=== PATIENT | male | born 1970 | race Caucasian/White ===

== ENCOUNTER 2017-05-14 14:51 | Emergency (ER) | payer OTHER ==
[2017-05-14 14:56] VITALS: BP 143/90; PULSE 84; TEMP 98.4; BMI 28.1
--- NOTE | 2017-05-14 15:43 | PDOC ---
History of Present Illness <Tim Schroeder - Last Filed: 05/14/17 15:43> - General History Source: Patient Exam Limitations: No Limitations - History of Present Illness Initial Comments: 05/14/17 15:47 The patient is a 47 year old male, with a significant past medical history of well controlled asthma and hypothyroidism, who presents to the emergency department with, a laceration on his 5th digit. The patient reports he was disassembling his electrical rotating metal saw when he accidentally pressed the on switch and it snagged his glove and clipped his finger. He pulled away his hand wrapped it in tissue and electrical tape then, reported to [facility] [place]. He reports his tetanus is up to date. He denies any recent fevers, chills, headache or dizziness. He denies any recent nausea, vomit, diarrhea or constipation. He denies any recent chest pain or shortness of breath. He denies any recent dysuria, frequency, urgency or hematuria. Allergies: NKA Past surgical history: Lower back surgery. Social History: Nonsmoker. Denies EtOH use and recreational drug use. Familial History: Paternal [place] <Rubén Carpenter - Last Filed: 05/14/17 15:47> - General Chief Complaint: Laceration Stated Complaint: cut my finger Time Seen by Provider: 05/14/17 15:09 Past History - Past Medical History COPD: No Thyroid Disease: Yes - Suicide/Smoking/Psychosocial Hx Smoking History: Never smoked Hx Alcohol Use: No Drug/Substance Use Hx: No Substance Use Type: None <Tim Schroeder - Last Filed: 05/14/17 15:43> <Rubén Carpenter - Last Filed: 05/14/17 15:47> - Past Medical History Allergies/Adverse Reactions: Allergies Allergy/AdvReac Type Severity Reaction Status Date / Time Penicillins Allergy Verified 05/14/17 14:52 Home Medications: Ambulatory Orders Escitalopram Oxalate [Lexapro -] 10 mg PO DAILY 05/14/17 Levothyroxine Sodium [Synthroid] 200 mcg PO DAILY 05/14/17 Review of Systems - Review of Systems Able to Perform ROS?: Yes Comments:: 05/14/17 15:47 CONSTITUTIONAL: Absent: fever, no chills, no fatigue EYES: Absent: visual changes ENT: Absent: ear pain, no sore throat CARDIOVASCULAR: Absent: chest pain, no palpitations RESPIRATORY: Absent: cough, no SOB GI: Absent: abdominal pain, no nausea, no vomiting, no constipation, no diarrhea GENITOURINARY: Absent: dysuria, no frequency, no hematuria MUSKULOSKELETAL: Absent: back pain, no arthralgia, no myalgia SKIN:+Laceration on the 5th finger. Absent: rash NEURO: Absent: headache All Other Systems: Reviewed and Negative <Rubén Carpenter - Last Filed: 05/14/17 15:47> *Physical Exam - Vital Signs Last Vital Signs Temp Pulse Resp BP Pulse Ox 98.4 F 84 16 143/90 100 05/14/17 14:51 05/14/17 14:51 05/14/17 14:51 05/14/17 14:51 05/14/17 14:51 <Tim Schroeder - Last Filed: 05/14/17 15:43> - Vital Signs Last Vital Signs Temp Pulse Resp BP Pulse Ox 98.4 F 84 16 143/90 100 05/14/17 14:51 05/14/17 14:51 05/14/17 14:51 05/14/17 14:51 05/14/17 14:51 - Physical Exam Comments: 05/14/17 15:47 GENERAL: Well developed, well nourished. Awake and alert. No acute distress. HEENT: Normocephalic, atraumatic. PERRLA, EOMI. No conjunctival pallor. Sclera are non- icteric. Moist mucous membranes. Oropharynx is clear. NECK: Supple. Full ROM. No JVD. Carotid pulses 2+ and symmetric, without bruits. No thyromegaly. No lymphadenopathy. CARDIOVASCULAR: Regular rate and rhythm. No murmurs, rubs, or gallops. Distal pulses are 2+ and symmetric. PULMONARY: No evidence of respiratory distress. Lungs clear to auscultation bilaterally. No wheezing, rales or rhonchi. ABDOMINAL: Soft. Non-tender. Non-distended. No rebound or guarding. No organomegaly. Normoactive bowel sounds. MUSCULOSKELETAL Normal range of motion at all joints. No bony deformities or tenderness. No CVA tenderness. EXTREMITIES: No cyanosis. No clubbing. No edema. No calf tenderness. SKIN: +2cm laceration on dorsal aspect of the 5th finger. Appears to be superficial. Full extension and full strength against resistance. No distal numbness on examination. Warm and dry. Normal capillary refill. No rashes. No jaundice. NEUROLOGICAL: Alert, awake, appropriate. Cranial nerves 2-12 intact. No deficits to light touch and temperature in face, upper extremities and lower extremities. No motor deficits in the in face, upper extremities and lower extremities. Normoreflexic in the upper and lower extremities. Normal speech. Toes are down- going bilaterally. Gait is normal without ataxia. PSYCHIATRIC: Cooperative. Good eye contact. Appropriate mood and affect. <Rubén Carpenter - Last Filed: 05/14/17 15:47> Medical Decision Making - Medical Decision Making 05/14/17 15:44 Procedure note: Repair of laceration Digital block 1% lidocaine plain with good anesthesia 2 cm laceration over the dorsum of the left fifth finger, transverse, PIPJ. Prepped with Betadine, scrubbed and irrigated with normal saline, explored. Superficial, involving only the epidermis. No deep structures exposed. No punctures. Closed with 5-0 nylon interrupted skin sutures. Good hemostasis. Dressed with bacitracin, 2 x 2, and tube gauze Wound care instructions Tetanus up to date Discharged fully ambulatory in no pain or other distress to follow-up as directed. <Tim Schroeder - Last Filed: 05/14/17 15:43> *DC/Admit/Observation/Transfer - Discharge Dispostion Admit: No <Tim Schroeder - Last Filed: 05/14/17 15:43> - Attestations Scribe Attestion: 05/14/17 15:47 Documentation prepared by Rubén Carpenter, acting as medical billing service for Tim Burnham MD. <Rubén Carpenter - Last Filed: 05/14/17 15:47> Diagnosis at time of Disposition: Laceration of finger Qualifiers: Encounter type: initial encounter Finger: little finger Damage to nail status: without damage Foreign body presence: without foreign body Laterality: left Qualified Code(s): S61.217A - Laceration without foreign body of left little finger without damage to nail, initial encounter - Discharge Dispostion Disposition: HOME Condition at time of disposition: Improved - Referrals Referrals: El Marsh MD [Staff Physician] - - Patient Instructions Printed Discharge Instructions: DI for Laceration Repair Additional Instructions: Keep clean and dry. Rest and elevate 24 hours. Wound care as directed. Return to ER if sign of infection, otherwise dressed with bacitracin or other antibiotic ointment and keep covered until suture removal 7 days.
== END 2017-05-14 15:55 | disposition home or self-care (01) ==
LOC: FER 14:51
PROC: 0HQGXZZ Repair Left Hand Skin, External Approach (ICD-10-PCS; principal; 2017-05-14)
DX: S61.217A Laceration without foreign body of left little finger without damage to nail, initial encounter (principal); J45.909 Unspecified asthma, uncomplicated; E03.9 Hypothyroidism, unspecified; W31.89XA Contact with other specified machinery, initial encounter; Y93.89 Activity, other specified; Y92.9 Unspecified place or not applicable; Y99.0 Civilian activity done for income or pay
CPT/HCPCS: 99282-25

== ENCOUNTER 2017-05-15 14:05 | Inpatient (IN) | payer OTHER ==
[2017-05-15] MEDS ORDERED: KETOROLAC TROMETHAMINE 30 MG/1 ML VIAL IM ONE (14:20)
[2017-05-15] MEDS ORDERED: KETOROLAC TROMETHAMINE 30 MG/1 ML VIAL IVPUSH ONE (14:26)
[2017-05-15] MEDS ORDERED: SODIUM CHLORIDE 1,000 ML IV SCH (14:30)
[2017-05-15] MEDS ORDERED: KETOROLAC TROMETHAMINE 30 MG/1 ML VIAL ONE (14:32)
[2017-05-15] MEDS ORDERED: LEVOFLOXACIN 750 MG IVPB 750 MG/150 ML BAG IVPB ONE ×2 (14:33)
--- NOTE | 2017-05-15 14:45 | PDOC ---
History of Present Illness - History of Present Illness Initial Comments: 05/15/17 15:02 47 y/o M with no significant PMH presents to the ED with diffuse erythema and swelling to his left pinky finger. Patient presented to the ED yesterday after slicing his finger with an electric saw. It was cleaned and sutured and he was discharged. Today, he presents with pain, redness and swelling at the site and surrounding area. He denies fever, chills. Denies numbness, tingling. Denies any other symptoms. Allergies: Penicillin <Marcelina Cabral - Last Filed: 05/15/17 15:01> - General History Source: Patient, Old Records Exam Limitations: No Limitations <Po Craft - Last Filed: 05/15/17 17:42> - General Chief Complaint: Revisit,Wound Recheck Stated Complaint: WOUND RECHECK Time Seen by Provider: 05/15/17 14:06 Past History <Marcelina Cabral - Last Filed: 05/15/17 15:01> - Past Medical History COPD: No DVT: No Thyroid Disease: Yes - Suicide/Smoking/Psychosocial Hx Smoking History: Never smoked Hx Alcohol Use: No Drug/Substance Use Hx: No Substance Use Type: None <Po Craft - Last Filed: 05/15/17 17:42> - Past Medical History Allergies/Adverse Reactions: Allergies Allergy/AdvReac Type Severity Reaction Status Date / Time Penicillins Allergy Verified 05/15/17 14:14 Home Medications: Ambulatory Orders Escitalopram Oxalate [Lexapro -] 10 mg PO DAILY 05/14/17 Levothyroxine Sodium [Synthroid] 200 mcg PO DAILY 05/14/17 Review of Systems - Review of Systems Comments:: 05/15/17 15:02 GENERAL/CONSTITUTIONAL: No fever or chills. No weakness. HEAD, EYES, EARS, NOSE AND THROAT: No change in vision. No ear pain or discharge. No sore throat. CARDIOVASCULAR: No chest pain or shortness of breath. RESPIRATORY: No cough, wheezing, or hemoptysis. GASTROINTESTINAL: No nausea, vomiting, diarrhea or constipation. GENITOURINARY: No dysuria, frequency, or change in urination. MUSCULOSKELETAL: (+) Swelling and pain to left fifth digit and surrounding area. No muscle swelling or pain. No neck or back pain. SKIN: (+) Redness to the left fifth digit and surrounding area. No rash NEUROLOGIC: No headache, vertigo, loss of consciousness, or change in strength/ sensation. ENDOCRINE: No increased thirst. No abnormal weight change. HEMATOLOGIC/LYMPHATIC: No anemia, easy bleeding, or history of blood clots. ALLERGIC/IMMUNOLOGIC: No hives or skin allergy. <CabralPeter chuMarcelina Lucio - Last Filed: 05/15/17 15:01> *Physical Exam - Vital Signs Last Vital Signs Temp Pulse Resp BP Pulse Ox 98.2 F 91 H 18 142/90 95 05/15/17 14:05 05/15/17 14:05 05/15/17 14:05 05/15/17 14:05 05/15/17 14:05 - Physical Exam Comments: 05/15/17 15:02 GENERAL: Awake, alert, and fully oriented, in no acute distress HEAD: No signs of trauma EYES: PERRLA, EOMI, sclera anicteric, conjunctiva clear ENT: Auricles normal inspection, hearing grossly normal, nares patent, oropharynx clear without exudates. Moist mucosa NECK: Normal ROM, supple, no lymphadenopathy, JVD, or masses EXTREMITIES: 9 x 5 cm of erythema to the dorsal surface of the left hand. Diffuse erythema along the entire left fifth digit. Tenderness to palpation over the proximal phalanx and mid phalanx. 3 overlying sutures. Normal range of motion. No clubbing or cyanosis. No cords. NEUROLOGICAL: Cranial nerves II through XII grossly intact. Normal speech, normal gait SKIN: Warm, Dry, normal turgor, no rashes or lesions noted. <CabralMarcelina A - Last Filed: 05/15/17 15:01> - Vital Signs Last Vital Signs Temp Pulse Resp BP Pulse Ox 98.2 F 91 H 18 142/90 95 05/15/17 14:05 05/15/17 14:05 05/15/17 14:05 05/15/17 14:05 05/15/17 14:05 <Po Craft - Last Filed: 05/15/17 17:42> Procedures - Additional Procedures Progress: 05/15/17 17:42 Two sutures removed. 3 cc of pus expressed. <Po Craft - Last Filed: 05/15/17 17:42> ED Treatment Course - LABORATORY CBC & Chemistry Diagram: 05/15/17 14:40 05/15/17 14:47 - ADDITIONAL ORDERS Additional order review: 05/15/17 14:40 RBC 5.18 MCV 86.0 MCHC 34.2 RDW 12.0 MPV 8.6 Neutrophils % 70.4 Lymphocytes % 19.3 Monocytes % 6.7 Eosinophils % 2.7 Basophils % 0.9 - Medications Given in the ED: ED Medications Discontinued Medications Generic Name Dose Route Start Last Admin Trade Name Mike PRN Reason Stop Dose Admin Ketorolac Tromethamine 30 mg 05/15/17 14:20 05/15/17 14:54 Toradol Injection - IM 05/15/17 14:21 Not Given ONCE ONE Ketorolac Tromethamine 30 mg 05/15/17 14:26 05/15/17 14:46 Toradol Injection - IVPUSH 05/15/17 14:27 30 mg ONCE ONE Administration <Marcelina Cabral - Last Filed: 05/15/17 15:01> - LABORATORY CBC & Chemistry Diagram: 05/15/17 14:40 05/15/17 14:47 <Po Craft - Last Filed: 05/15/17 17:42> Medical Decision Making - Medical Decision Making 05/15/17 14:44 A portion of this note was documented by scribe services under my direction. I have reviewed the details of the note, within reason, and agree with the documentation with the following case summary and management plan written by me. Patient treated in the ED. Nursing notes are reviewed and incorporated into the medical decision-making. Vital signs reviewed. Peripheral IV access obtained by the nurse, laboratory studies are drawn and sent, reviewed and interpreted by myself. Vital Signs Temp Pulse Resp BP Pulse Ox 98.2 F 91 H 18 142/90 95 05/15/17 14:05 05/15/17 14:05 05/15/17 14:05 05/15/17 14:05 05/15/17 14:05 47-year-old male, [id number], no past medical history returns back to the ED for left fifth digit and hand cellulitis infection. The patient was here yesterday for an injury to the left pinky. Has sutures placed and the patient was discharged. Noted today that he has had significant erythema and tenderness but no fevers or chills. The patient will certainly has a wound infection of his left fifth digit. Blood cultures and labs were ordered. Empiric levofloxacin was ordered. Case was discussed with Dr. Aroldo Abbott (plastics) who will review case and get back with disposition and plan. 05/15/17 17:40 CBC, BMP 05/15/17 14:40 05/15/17 14:47 CMP Sodium 138 mmol/L (136-145) 05/15/17 14:47 Potassium 4.1 mmol/L (3.5-5.1) 05/15/17 14:47 Chloride 105 mmol/L (98-107) 05/15/17 14:47 Carbon Dioxide 25 mmol/L (22-28) 05/15/17 14:47 Anion Gap 8 (8-16) 05/15/17 14:47 BUN 15 mg/dl (7-18) 05/15/17 14:47 Creatinine 1.0 mg/dl (0.6-1.3) 05/15/17 14:47 Creat Clearance w eGFR > 60 (>60) 05/15/17 14:47 Random Glucose 124 mg/dl (74-106) H 05/15/17 14:47 Calcium 9.2 mg/dl (8.4-10.2) 05/15/17 14:47 Total Bilirubin 0.5 mg/dl (0.2-1.0) 05/15/17 14:47 AST 36 U/L (10-42) 05/15/17 14:47 ALT 63 U/L (10-40) H 05/15/17 14:47 Alkaline Phosphatase 60 U/L (32-92) 05/15/17 14:47 Total Protein 7.0 g/dl (6.4-8.3) 05/15/17 14:47 Albumin 4.0 g/dl (3.5-5.0) 05/15/17 14:[address] Abbott. He recommended that I removed 2 of the sutures and to attempt to express the pus. He also recommends that we admit the patient to the hospital. Due to the sutures were removed in approximately 3 mL of pus was drained. Wound culture was obtained and sent. Patient was placed on vancomycin and Levaquin. Case discussed with [facility] hospitalist. Accepts for med/surg admission. Case discussed in detail with admitting physician including history, physical exam and ancillary studies. Admitting physician has assumed care for the patient, will follow all pending diagnostics and will complete the evaluation and treatment. <Po Craft - Last Filed: 05/15/17 17:42> *DC/Admit/Observation/Transfer - Attestations Scribe Attestion: 05/15/17 15:03 Documentation prepared by Marcelina Cabral, acting as certified medical asst for Po Craft MD. <Marcelina Cabral - Last Filed: 05/15/17 15:01> - Discharge Dispostion Admit: Yes <Po Craft - Last Filed: 05/15/17 17:42> Diagnosis at time of Disposition: Wound infection - Discharge Dispostion Condition at time of disposition: Stable
[2017-05-15 14:55] LABS: WHITE BLOOD COUNT 11.2 K/mm3 (4.0-10.8)
[2017-05-15 14:58] LABS: BASO % 0.9 % (0-2.0); EOS % 2.7 % (0-4.5); MCH 29.4 pg (25.7-33.7); MCHC 34.2 g/dl (32.0-35.9); MEAN PLT VOLUME 8.6 fl (7.5-11.1); NEUT % 70.4 % (42.8-82.8); PLATELET COUNT 260 K/MM3 (134-434)
[2017-05-15 15:03] LABS: ALK PHOS 60 U/L (32-92); ANION GAP 8 (8-16); BILIRUBIN,TOTAL 0.5 mg/dl (0.2-1.0); CALCIUM 9.2 mg/dl (8.4-10.2); CO2 25 mmol/L (22-28); GLUCOSE,RANDOM 124 mg/dl (74-106); SGOT/AST 36 U/L (10-42); SGPT/ALT 63 U/L (10-40)
[2017-05-15 15:04] LABS: ACTIVATED PTT 28.5 SECONDS (24.0-38.9)
[2017-05-15 15:09] LABS: INR 1.07 (0.82-1.09)
[2017-05-15] MEDS ORDERED: VANCOMYCIN 1,000 MG in DEXTROSE 5%-WATER - 250 ML IVPB ONE ×2 (16:13→22:00)
[2017-05-15] MEDS ORDERED: VANCOMYCIN 1,000 MG VIAL (RESTRICTED TO ID ONLY) ONE (16:24)
[2017-05-15 17:05] LABS: EOS # 0.3 #; LYMPH # 2.2 # (8-40); MONO # 0.7 #; NEUT # 7.9 # (42.8-82.8)
[2017-05-15 20:39] VITALS: BMI 31.9
--- NOTE | 2017-05-15 20:47 | HP ---
CHIEF COMPLAINT: PCP: HISTORY OF PRESENT ILLNESS: ER course was notable for: (1) (2) (3) Recent Travel: PAST MEDICAL HISTORY: PAST SURGICAL HISTORY: Social History: Smoking: Alcohol: Drugs: Family History: Allergies Penicillins Allergy (Verified 05/15/17 14:14) HOME MEDICATIONS: Home Medications Medication Instructions Recorded Escitalopram Oxalate [Lexapro -] 10 mg PO DAILY 05/14/17 Levothyroxine Sodium [Synthroid] 200 mcg PO DAILY 05/14/17 REVIEW OF SYSTEMS CONSTITUTIONAL: Absent: fever, chills, diaphoresis, generalized weakness, malaise, loss of appetite, weight change HEENT: Absent: rhinorrhea, nasal congestion, throat pain, throat swelling, difficulty swallowing, mouth swelling, ear pain, eye pain, visual changes CARDIOVASCULAR: Absent: chest pain, syncope, palpitations, irregular heart rate, lightheadedness , peripheral edema RESPIRATORY: Absent: cough, shortness of breath, dyspnea with exertion, orthopnea, wheezing, stridor, hemoptysis GASTROINTESTINAL: Absent: abdominal pain, abdominal distension, nausea, vomiting, diarrhea, constipation, melena, hematochezia GENITOURINARY: Absent: dysuria, frequency, urgency, hesitancy, hematuria, flank pain, genital pain MUSCULOSKELETAL: Absent: myalgia, arthralgia, joint swelling, back pain, neck pain SKIN: Absent: rash, itching, pallor HEMATOLOGIC/IMMUNOLOGIC: Absent: easy bleeding, easy bruising, lymphadenopathy, frequent infections ENDOCRINE: Absent: unexplained weight gain, unexplained weight loss, heat intolerance, cold intolerance NEUROLOGIC: Absent: headache, focal weakness or paresthesias, dizziness, unsteady gait, seizure, mental status changes, bladder or bowel incontinence PSYCHIATRIC: Absent: anxiety, depression, suicidal or homicidal ideation, hallucinations. PHYSICAL EXAMINATION Vital Signs - 24 hr 05/15/17 05/15/17 05/15/17 14:05 17:40 18:29 Temperature 98.2 F 98.9 F Pulse Rate 91 H 84 Pulse Rate [ 93 H Left] Respiratory 18 16 Rate Blood Pressure 142/90 137/87 Blood Pressure 136/84 [Right Arm] O2 Sat by Pulse 95 96 95 Oximetry (%) GENERAL: Awake, alert, and fully oriented, in no acute distress. HEAD: Normal with no signs of trauma. EYES: Pupils equal, round and reactive to light, extraocular movements intact, sclera anicteric, conjunctiva clear. No lid lag. EARS, NOSE, THROAT: Ears normal, nares patent, oropharynx clear without exudates. Moist mucous membranes. NECK: Normal range of motion, supple without lymphadenopathy, JVD, or masses. LUNGS: Breath sounds equal, clear to auscultation bilaterally. No wheezes, and no crackles. No accessory muscle use. HEART: Regular rate and rhythm, normal S1 and S2 without murmur, rub or gallop. ABDOMEN: Soft, nontender, not distended, normoactive bowel sounds, no guarding, no rebound, no masses. No hepatomegaly or splenomegaly. MUSCULOSKELETAL: Normal range of motion at all joints. No bony deformities or tenderness. No CVA tenderness. UPPER EXTREMITIES: 2+ pulses, warm, well-perfused. No cyanosis. No clubbing. No peripheral edema. LOWER EXTREMITIES: 2+ pulses, warm, well-perfused. No calf tenderness. No peripheral edema. NEUROLOGICAL: Cranial nerves II-XII intact. Normal speech. Normal gait. PSYCHIATRIC: Cooperative. Good eye contact. Appropriate mood and affect. SKIN: Warm, dry, normal turgor, no rashes or lesions noted, normal capillary refill. Laboratory Results - last 24 hr 05/15/17 05/15/17 05/15/17 14:40 14:47 14:47 WBC 11.2 H RBC 5.18 Hgb 15.2 Hct 44.5 MCV 86.0 MCH 29.4 MCHC 34.2 RDW 12.0 Plt Count 260 MPV 8.6 Neutrophils % 70.4 Lymphocytes % 19.3 Monocytes % 6.7 Eosinophils % 2.7 Basophils % 0.9 PT with INR 12.0 INR 1.07 PTT (Actin FS) 28.5 Sodium 138 Potassium 4.1 Chloride 105 Carbon Dioxide 25 Anion Gap 8 BUN 15 Creatinine 1.0 Creat Clearance w eGFR > 60 Random Glucose 124 H Calcium 9.2 Total Bilirubin 0.5 AST 36 ALT 63 H Alkaline Phosphatase 60 Total Protein 7.0 Albumin 4.0 Blood Type Antibody Screen 05/15/17 16:15 WBC RBC Hgb Hct MCV MCH MCHC RDW Plt Count MPV Neutrophils % Lymphocytes % Monocytes % Eosinophils % Basophils % PT with INR INR PTT (Actin FS) Sodium Potassium Chloride Carbon Dioxide Anion Gap BUN Creatinine Creat Clearance w eGFR Random Glucose Calcium Total Bilirubin AST ALT Alkaline Phosphatase Total Protein Albumin Blood Type B POSITIVE Antibody Screen Negative ASSESSMENT/PLAN:
[2017-05-15] MEDS ORDERED: oxyCODONE HCL 5 MG TABLET PO PRN (21:20)
[2017-05-15] MEDS ORDERED: ACETAMINOPHEN 325 MG TABLET (FP) PO PRN (21:20)
[2017-05-15] MEDS ORDERED: VANCOMYCIN 1,000 MG in DEXTROSE 5%-WATER - 250 ML IVPB SCH (22:00)
[2017-05-15] MEDS: ACETAMINOPHEN 325 MG TABLET (FP) PO PRN (22:01)
[2017-05-15] MEDS ORDERED: PIPERACIL/TAZOB 3.375 GM 3.375 GM/50 ML PREMIX IVPB SCH (23:00)
--- NOTE | 2017-05-15 23:04 | HP ---
CHIEF COMPLAINT: Left 5th digit swelling, erythema extending to wrist s/p laceration with saw PCP: HISTORY OF PRESENT ILLNESS: 47 year-old male with a PMH significant for asthma, hypothyroidism, and s/p lumbar laminectomy 2009 (no hardware) who yesterday suffered a 2cm laceration over the dorsum of the left fifth finger, transverse, PIPJ with an electrical saw. Patient was seen in the [place] ED. The wound was assessed as superficial, involving only the epidermis with no exposed deep structures and no punctures. The laceration was closed with 5-0 nylon interrupted skin sutures and dressed with bacitracin. Tetanus was up to date. When patient awoke this morning the area surrounding the sutures was mildly erythematous and swollen. As the day progressed, however, the swelling and erythema became much worse and pus started coming out of the wound. Patient's , who is an RN, said from the time it took to drive back to the ED, red streaks appeared from the finger to the wrist. Today in the ED, several sutures were removed and ~ 3cm of pus expressed and sent for culture. Started on broad spectrum antibiotics. Patient states he "does not feel well" but denies fever, sweats, chills. ED course was notable for: (1) WBC 11.2; afebrile; BP 142/90; p91 (2) Blood and wound cultures collected and sent (3) Vanco 1g x 1; levofloxacin 750mg x 1 Recent Travel: No PAST MEDICAL HISTORY: Asthma Hypothyroidism PAST SURGICAL HISTORY: Lumbar laminectomy 2009 Social History: Smoking: no Alcohol: no Drugs: no Family History: Father alive s/p open heart surgery and DM; mother a&w; siblings a&w; children a&w Allergies Penicillins Allergy (Verified 05/15/17 14:14) HOME MEDICATIONS: Home Medications Medication Instructions Recorded Escitalopram Oxalate [Lexapro -] 10 mg PO DAILY 05/14/17 Levothyroxine Sodium [Synthroid] 200 mcg PO DAILY 05/14/17 REVIEW OF SYSTEMS CONSTITUTIONAL: Present: malaise Absent: fever, chills, diaphoresis, generalized weakness, malaise, loss of appetite, weight change HEENT: Absent: rhinorrhea, nasal congestion, throat pain, throat swelling, difficulty swallowing, mouth swelling, ear pain, eye pain, visual changes CARDIOVASCULAR: Absent: chest pain, syncope, palpitations, irregular heart rate, lightheadedness , peripheral edema RESPIRATORY: Absent: cough, shortness of breath, dyspnea with exertion, orthopnea, wheezing, stridor, hemoptysis GASTROINTESTINAL: Absent: abdominal pain, abdominal distension, nausea, vomiting, diarrhea, constipation, melena, hematochezia GENITOURINARY: Absent: dysuria, frequency, urgency, hesitancy, hematuria, flank pain, genital pain MUSCULOSKELETAL: Absent: myalgia, arthralgia, joint swelling, back pain, neck pain SKIN: Present: erythema, swelling, warmth, pain left 5th digit extending to wrist Absent: rash, itching, pallor HEMATOLOGIC/IMMUNOLOGIC: Absent: easy bleeding, easy bruising, lymphadenopathy, frequent infections ENDOCRINE: Absent: unexplained weight gain, unexplained weight loss, heat intolerance, cold intolerance NEUROLOGIC: Absent: headache, focal weakness or paresthesias, dizziness, unsteady gait, seizure, mental status changes, bladder or bowel incontinence PSYCHIATRIC: Absent: anxiety, depression, suicidal or homicidal ideation, hallucinations. PHYSICAL EXAMINATION Vital Signs - 24 hr 05/15/17 05/15/17 05/15/17 14:05 17:40 18:29 Temperature 98.2 F 98.9 F Pulse Rate 91 H 84 Pulse Rate [ 93 H Left] Respiratory 18 16 Rate Blood Pressure 142/90 137/87 Blood Pressure 136/84 [Right Arm] O2 Sat by Pulse 95 96 95 Oximetry (%) 05/15/17 21:09 Temperature 98.5 F Pulse Rate 85 Pulse Rate [ Left] Respiratory 16 Rate Blood Pressure 138/74 Blood Pressure [Right Arm] O2 Sat by Pulse 96 Oximetry (%) GENERAL: Awake, alert, and fully oriented, in no acute distress. HEAD: Normal with no signs of trauma. EYES: Pupils equal, round and reactive to light, extraocular movements intact, sclera anicteric, conjunctiva clear. No lid lag. EARS, NOSE, THROAT: Ears normal, nares patent, oropharynx clear without exudates. Moist mucous membranes. NECK: Normal range of motion, supple without lymphadenopathy, JVD, or masses. LUNGS: Breath sounds equal, clear to auscultation bilaterally. No wheezes, and no crackles. No accessory muscle use. HEART: Regular rate and rhythm, normal S1 and S2 without murmur, rub or gallop. ABDOMEN: Soft, nontender, not distended, normoactive bowel sounds, no guarding, no rebound, no masses. MUSCULOSKELETAL: Normal range of motion at all joints. No bony deformities or tenderness. No CVA tenderness. UPPER EXTREMITIES: LEFT: Severe left fifth digit erythema, swelling, warmth, tenderness; swelling and erythema extend to wrist; 2+ radial pulses LOWER EXTREMITIES: 2+ pulses, warm, well-perfused. No calf tenderness. No peripheral edema. NEUROLOGICAL: Cranial nerves II-XII intact. Normal speech. Laboratory Results - last 24 hr 05/15/17 05/15/17 05/15/17 14:40 14:47 14:47 WBC 11.2 H RBC 5.18 Hgb 15.2 Hct 44.5 MCV 86.0 MCH 29.4 MCHC 34.2 RDW 12.0 Plt Count 260 MPV 8.6 Neutrophils % 70.4 Lymphocytes % 19.3 Monocytes % 6.7 Eosinophils % 2.7 Basophils % 0.9 PT with INR 12.0 INR 1.07 PTT (Actin FS) 28.5 Sodium 138 Potassium 4.1 Chloride 105 Carbon Dioxide 25 Anion Gap 8 BUN 15 Creatinine 1.0 Creat Clearance w eGFR > 60 Random Glucose 124 H Calcium 9.2 Total Bilirubin 0.5 AST 36 ALT 63 H Alkaline Phosphatase 60 Total Protein 7.0 Albumin 4.0 Blood Type Antibody Screen 05/15/17 05/15/17 16:15 16:15 WBC RBC Hgb Hct MCV MCH MCHC RDW Plt Count MPV Neutrophils % Lymphocytes % Monocytes % Eosinophils % Basophils % PT with INR INR PTT (Actin FS) Sodium Potassium Chloride Carbon Dioxide Anion Gap BUN Creatinine Creat Clearance w eGFR Random Glucose Calcium Total Bilirubin AST ALT Alkaline Phosphatase Total Protein Albumin Blood Type B POSITIVE B POSITIVE Antibody Screen Negative ASSESSMENT/PLAN: 47 year-old male with a PMH significant for asthma, hypothyroidism, and s/p lumbar laminectomy 2009 (no hardware) who yesterday suffered a 2cm laceration over the dorsum of the left fifth finger. Seen in ED, wound was cleaned and sutured. Presents today to the ED with cellulitis of the left 5th digit extending to wrist with purulent drainage. Purulent cellultis left 5th digit and left hand --rapidly evolving --CT left hand stat --started on Vanc and levaquin in ED; add metronidazole --ID consult pending --case discussed between ED and Dr. Aroldo Abbott; consult for Dr. Abbott hand /plastics placed --IV fluids --patient refuses narcotic pain relief; tylenol and ketorolac PRN --initiate transfer to tertiary care facility DVT prophylaxis: SCDs, oob, ambulation Dispo: requires inpatient care. Visit type - Emergency Visit Emergency Visit: Yes ED Registration Date: 05/15/17 Care time: The patient presented to the Emergency Department on the above date and was hospitalized for further evaluation of their emergent condition. - New Patient This patient is new to me today: Yes Date on this admission: 05/15/17 - Critical Care Critical Care patient: Yes Total Critical Care Time (in minutes): 60 Critical Care Statement: The care of this patient involved high complexity decision making to prevent further life threatening deterioration of the patient 's condition and/or to evaluate & treat vital organ system(s) failure or risk of failure.
[2017-05-15] MEDS ORDERED: METRONIDAZOLE 500 MG PREMIXED 500 MG/100 ML MG IVPB SCH ×2 (23:15→23:45)
[2017-05-15] MEDS: PIPERACILLIN/TAZOB 3.375 GM/50 ML PRE-DOCKED IVPB ONE ×2 (23:32→23:37)
[2017-05-15] MEDS ORDERED: KETOROLAC TROMETHAMINE 15 MG/ML VIAL IVPUSH PRN (23:37)
[2017-05-16] MEDS ORDERED: HEPARIN NA (PORCINE) 5,000 UNITS/ML 1ML VIAL SQ SCH (02:00)
--- NOTE | 2017-05-16 03:22 | HOSP ---
Subjective - Review of Symptoms Events since last encounter: hospitalist encounter Arrived to bedside, patient examined, he agreed to transfer to [facility]. Transfer form completed Physical Examination Vital Signs: Vital Signs Temperature 98.5 F 05/16/17 00:24 Pulse Rate 82 05/16/17 00:24 Respiratory Rate 18 05/16/17 00:24 Blood Pressure 152/83 05/16/17 00:24 O2 Sat by Pulse Oximetry (%) 96 05/16/17 00:24 Labs: CBC, BMP 05/15/17 14:40 05/15/17 14:47
[2017-05-16] MEDS: ACETAMINOPHEN 325 MG TABLET (FP) PO PRN (03:39)
[2017-05-16] MEDS ORDERED: VANCOMYCIN 1 GRAM (PRE-DOCKED) 1,000 MG/250 ML BAG IVPB SCH (04:00)
[2017-05-16] MEDS ORDERED: VANCOMYCIN 1 GRAM (PRE-DOCKED) 1,000 MG/250 ML BAG IVPB ONE (05:00)
[2017-05-16 06:16] VITALS: BP 148/99; PULSE 66; TEMP 98.9
[2017-05-16] MEDS ORDERED: PIPERACILLIN/TAZOB 3.375 GM/50 ML PRE-DOCKED IVPB ONE (07:00)
[2017-05-16] MEDS ORDERED: LEVOFLOXACIN 750 MG IVPB 750 MG/150 ML BAG IVPB SCH ×2 (10:00)
[2017-05-16] MEDS ORDERED: PIPERACILLIN/TAZOB 3.375 GM/50 ML PRE-DOCKED IVPB SCH (18:00)
== END 2017-05-16 06:15 | disposition short-term general hospital (02) | DRG 383 ==
LOC: FER 14:05 → FM/S 17:40
PROVIDERS: ADMIT Hospitalist; ATTEND Nurse Practitioner Family
DX: L03.012 Cellulitis of left finger (principal); E03.9 Hypothyroidism, unspecified; J45.909 Unspecified asthma, uncomplicated; S61.217A Laceration without foreign body of left little finger without damage to nail, initial encounter; W29.0XXA Contact with powered kitchen appliance, initial encounter; Y92.89 Other specified places as the place of occurrence of the external cause; L08.89 Other specified local infections of the skin and subcutaneous tissue
CPT/HCPCS: 36415; 73200-TC-RT; 80053; 85025; 85610; 85730; 86850; 86900; 86901; 87040; 87070; 87186; 87205; 99282-25